=== PATIENT | female | born 1970 | race Caucasian/White ===

== ENCOUNTER 2018-04-05 22:01 | Emergency (ER) | payer BC ==
[~2018-04-05] VITALS: Ht 172.7 cm; Wt 113.4 kg
--- NOTE | 2018-04-05 22:01 | NUR ---
PT BIB [facility] 83. PER PT, SHE WAS AT A HOT TUB W/ FRIENDS AND DRINKING BEER, WHEN SHE SLIPPED DOWN 2 STEPS. PT NOW PRESENTS TO ER W/ 07/22 RT ANKLE PAIN W/ OBVIOUS DEFORMITY, AND PLACED IN TEMPORARY SPLINT BY PARAMEDICS.
--- NOTE | 2018-04-05 22:02 | NUR ---
PER PARAMEDICS, PT WAS GIVEN 8MG MORPHINE IV AND 4MG ZOFRAN IV EN ROUTE TO ER. PT STILL C/O 07/22 PAIN.
[2018-04-05] MEDS ORDERED: FENTANYL CITRATE 100 MCG/2 ML AMPUL ONE (22:09)
[2018-04-05] MEDS ORDERED: MIDAZOLAM HCL 2 MG/2 ML VIAL ONE (22:10)
--- NOTE | 2018-04-05 22:11 | NUR ---
DR DESIRE ANN MD, FORM MAKER, RESPIRATORY THERAPY, 2 RN'S, INKER AT BEDSIDE FOR CONSCOIUS SEDATION PREP.
[2018-04-05] MEDS ORDERED: MIDAZOLAM HCL 2 MG/2 ML VIAL IV ONE (22:15)
[2018-04-05] MEDS ORDERED: FENTANYL CITRATE 100 MCG/2 ML AMPUL IV ONE (22:15)
--- NOTE | 2018-04-05 22:20 | NUR ---
CONSCIOUS SEDATION PERFORMED AT BEDSIDE: 2206: PRE-PROCEDURE VITALS BP 147/85, HR 92, 98% O2 RA 2212: 100 MCG FENTANYL IV AND 4 MG VERSED IV GIVEN BP 138/75, HR 83, 99% O2 ON 2L NC 2217: INTRA-PROCEDURE BP 117/79, HR 87, 98% O2 ON 2L NC 2021: POST-PROCEDURE BP 131/80, HR 76, 100% O2 ON 2L NC
--- NOTE | 2018-04-05 22:26 | NUR ---
RADIOLOGY AT PT BEDSIDE FOR XRAY OF RT LEG.
[2018-04-05] MEDS ORDERED: ONDANSETRON 4 MG/2 ML VIAL IV ONE (22:30)
[2018-04-05] MEDS ORDERED: IV NORMAL SALINE 1000 ML BAG IV ONE (22:30)
[2018-04-05] MEDS ORDERED: HYDROMORPHONE 1 MG/1 ML DISP.SYRIN IV ONE (22:30)
--- NOTE | 2018-04-05 22:42 | NUR ---
RADIOLOGY AT BEDSIDE FOR CHEST XRAY.
[2018-04-05 23:08] LABS: BILIRUBIN,DIRECT 0.1 mg/dL (0.0-0.2); BILIRUBIN,TOTAL 0.3 mg/dL (0.2-1.0); CREATININE 0.8 mg/dL (0.6-1.3); POTASSIUM 3.4 mmol/L (3.5-5.1); TOTAL PROTEIN, SERUM 7.2 g/dL (6.4-8.2)
--- NOTE | 2018-04-05 23:15 | NUR ---
PER [employer], PT IS NOT TO BE ADMITTED. RATHER, WILL BE INSTRUCTED TO FOLLOW UP THE FOLLOWING DAY FOR SPECIALTY CONSULT.
[2018-04-05] MEDS ORDERED: ONDANSETRON 4 MG/2 ML VIAL ONE (23:22)
[2018-04-05] MEDS ORDERED: HYDROMORPHONE 2 MG/1 ML DISP.SYRIN ONE (23:22)
[2018-04-06 00:12] LABS: BASOPHILS % (AUTO) 0.5 % (0.0-2.0); EOSINOPHILS # (AUTO) 0.5 K/uL (0.0-0.7); EOSINOPHILS % (AUTO) 5.3 % (0.0-7.0); HEMATOCRIT 33.9 % (31.2-41.9); HEMOGLOBIN 11.6 g/dL (10.9-14.3); LYMPHOCYTES # (AUTO) 2.3 K/uL (20.0-40.0); LYMPHOCYTES % (AUTO) 26.5 % (20.5-51.5); MEAN CORPUSCULAR HEMOGLOBIN 31.1 uug (24.7-32.8); MEAN CORPUSCULAR HGB CONC 34 g/dL (32.3-35.6); MEAN CORPUSCULAR VOLUME 91.2 fL (75.5-95.3); MONOCYTES # (AUTO) 0.8 K/uL (2.0-10.0); MONOCYTES % (AUTO) 9.5 % (0.0-11.0); NEUTROPHILS % (AUTO) 58.2 % (38.5-71.5); PLATELET COUNT (AUTO) 244 K/uL (179-408); RED BLOOD CELL COUNT(AUTO) 3.72 MIL/uL (3.63-4.92); WHITE BLOOD COUNT (AUTO) 8.6 K/uL (3.8-11.8)
--- NOTE | 2018-04-06 00:24 | NUR ---
Crutches dispensed. Pt instructed on proper use of crutches. Patient able to demonstrate correct use of crutches.
--- NOTE | 2018-04-06 00:25 | NUR ---
Patient discharged to home in stable conditon. Written and verbal after care instructions given. Patient verbalizes understanding of instructions. Pt ambulated from ER w/ use of crutches w/ steady gait. No distress noted. Pt accompanied by friends. Pt took all personal belongings.
[2018-04-06 02:45] VITALS: BP 135/68
[2018-04-06] MEDS ORDERED: METF500T6 PO (11:50)
[2018-04-06] MEDS ORDERED: SERT50TA PO (11:50)
[2018-04-06] MEDS ORDERED: ZOLP5TAB2 PO (18:24)
== END 2018-04-06 03:24 | disposition home or self-care (01) ==
LOC: ER 22:03
DX: S82.841A Displaced bimalleolar fracture of right lower leg, initial encounter for closed fracture (principal); W18.40XA Slipping, tripping and stumbling without falling, unspecified, initial encounter; Y93.89 Activity, other specified; Y92.89 Other specified places as the place of occurrence of the external cause; Y99.8 Other external cause status
CPT/HCPCS: 36415; 71045; 73590; 73610; 84703; 85025; 93005; A4663; J1170; J2250; J2405; J3010; J7030

== ENCOUNTER 2018-04-06 10:48 | Inpatient (IN) | payer BC ==
[~2018-04-06] VITALS: Ht 172.7 cm; Wt 117.9 kg
[~2018-04-06 10:48] MED LIST: CEFAZOLIN 1 G VIAL MC ONE; DEXAMETHASONE SOD PHOSPHATE 4 MG INJ IV ONE; GLYCOPYRROLATE 0.2 MG/ML VIAL MC ONE; IV NORMAL SALINE 1000 ML BAG IV ONE; KETOROLAC TROMETHAMINE 30 MG INJ IM ONE; LIDOCAINE HCL 2% 20 ML VIAL MC ONE; NEOSTIGMINE METHYLSULFATE 10 MG/10 ML VIAL IV ONE; ONDANSETRON 4 MG/2 ML VIAL IV ONE; PROPOFOL 200 MG/20 ML BOTTLE IV ONE
[2018-04-06] MEDS ORDERED: HYDROMORPHONE 1 MG/1 ML DISP.SYRIN IM ONE ×2 (11:00→12:30)
[2018-04-06] MEDS ORDERED: diphenhydrAMINE 50 MG/1 ML VIAL IM ONE (11:00)
[2018-04-06] MEDS ORDERED: diphenhydrAMINE 50 MG/1 ML VIAL ONE (11:09)
[2018-04-06] MEDS ORDERED: HYDROMORPHONE 2 MG/1 ML DISP.SYRIN ONE ×3 (11:10→15:21)
--- NOTE | 2018-04-06 11:15 | NUR ---
Patient here for c/o ankle "dislocation". States was addi last night for same reason. Medications given as ordered. Patient at CT scan now...
--- NOTE | 2018-04-06 11:45 | NUR ---
Patient states pain has diminshed slightly. She is awake and alert.
[2018-04-06] MEDS ORDERED: METF500T6 PO (11:50)
[2018-04-06] MEDS ORDERED: SERT50TA PO (11:50)
--- NOTE | 2018-04-06 12:45 | NUR ---
Pain medication given as ordered.
--- NOTE | 2018-04-06 13:20 | NUR ---
Patient states pain ahs dimiished slightly. Ice bag placed on ankle. Patient states ice makes it feel better.
[2018-04-06] MEDS ORDERED: FENTANYL CITRATE 100 MCG/2 ML AMPUL IV ONE (14:00)
--- NOTE | 2018-04-06 14:13 | NUR ---
dr adrienne power here at bedside speaking to patient
[2018-04-06 14:27] LABS: BASOPHILS % (AUTO) 0.5 % (0.0-2.0); EOSINOPHILS # (AUTO) 0.4 K/uL (0.0-0.7); EOSINOPHILS % (AUTO) 4.8 % (0.0-7.0); HEMATOCRIT 37.3 % (31.2-41.9); HEMOGLOBIN 12.5 g/dL (10.9-14.3); LYMPHOCYTES # (AUTO) 1.8 K/uL (20.0-40.0); LYMPHOCYTES % (AUTO) 20.5 % (20.5-51.5); MEAN CORPUSCULAR HEMOGLOBIN 30.3 uug (24.7-32.8); MEAN CORPUSCULAR HGB CONC 33 g/dL (32.3-35.6); MEAN CORPUSCULAR VOLUME 90.8 fL (75.5-95.3); MONOCYTES % (AUTO) 11.1 % (0.0-11.0); NEUTROPHILS # (AUTO) 5.5 K/uL (1.8-8.9); NEUTROPHILS % (AUTO) 63.1 % (38.5-71.5); PLATELET COUNT (AUTO) 260 K/uL (179-408); RED BLOOD CELL COUNT(AUTO) 4.11 MIL/uL (3.63-4.92); WHITE BLOOD COUNT (AUTO) 8.8 K/uL (3.8-11.8)
[2018-04-06] MEDS ORDERED: FENTANYL CITRATE 100 MCG/2 ML AMPUL ONE ×2 (14:29→16:58)
[2018-04-06 14:34] LABS: BILIRUBIN,DIRECT 0.1 mg/dL (0.0-0.2); BILIRUBIN,TOTAL 0.5 mg/dL (0.2-1.0); CREATININE 0.8 mg/dL (0.6-1.3); POTASSIUM 4.2 mmol/L (3.5-5.1); TOTAL PROTEIN, SERUM 7.6 g/dL (6.4-8.2)
[2018-04-06] MEDS ORDERED: POLYMYXIN B SULFATE 500,000 UNITS, BACITRACIN 50,000 UNITS, NORMAL SALINE 20 ML MC ONE ×3 (14:45)
--- NOTE | 2018-04-06 14:45 | NUR ---
Fentanyl given slowly iv as ordered for c/o continuous pain in ankle.
[2018-04-06] MEDS ORDERED: ROCURONIUM BROMIDE 50 MG/5 ML VIAL ONE (15:21)
[2018-04-06] MEDS ORDERED: SUCCINYLCHOLINE CHLORIDE 200 MG/10 ML VIAL ONE (15:21)
--- NOTE | 2018-04-06 15:21 | NUR ---
patient states pain has diminshed slightly. OR team monie and Arlene here. Report given to them both. patient is aware of pending surgery. She spoke to Dr Israel and signed a surgical consent. She has been NPO since 0800 today... states she had a piece of "toast"
[2018-04-06] MEDS ORDERED: DESFLURANE ANESTHESIA GAS 240 ML BOTTLE ONE (15:53)
[2018-04-06] MEDS ORDERED: SEVOFLURANE 250 ML BOTTLE ONE (15:53)
[2018-04-06] MEDS ORDERED: HYDROCODONE/APAP 10-325 MG TABLET PO PRN (17:15)
[2018-04-06] MEDS ORDERED: IV D5W-0.45% NS +20 KCL 1,000 ML IV PRN (17:15)
[2018-04-06] MEDS ORDERED: MORPHINE SULFATE 4 MG/1 ML DISP.SYRIN IV PRN (17:15)
[2018-04-06 18:11] VITALS: BP 121/65
[2018-04-06] MEDS ORDERED: ZOLP5TAB2 PO (18:24)
[2018-04-06 18:25] VITALS: BP 135/70
[2018-04-06 18:40] VITALS: BP 135/88
[2018-04-06 18:55] VITALS: BP 134/74
--- NOTE | 2018-04-06 18:58 | NUR ---
Pt alert and orientx 4. IV on right f/A intact. Pt on cast on right leg. Right Leg +2 edema. right leg Elevated on pillow and iced. Gave pt Morphine for pain on right ankle. Pt able to wiggle toes and feel sensation on right foot. Educated pt on proper pain management and prevention of constipation by dringink prune juice or increase fiber intake. Pt verbalized understanding. o2 97% on 3 liters. Call light is within reach.
[2018-04-06 19:00] VITALS: BP 130/73
--- NOTE | 2018-04-06 19:10 | NUR ---
RECEIVED PT AWAKE, ALERT, AND ORIENTEDX4. PT SHOWS NO SIGNS OF DISTRESS. PT IV INTACT AND PATENT. PUT ICE AND ELEVATE THE LEGS OF THE PT. CALL LIGHT WITHIN REACH, BED ALARM ON, IN LOW POSITION ,AND SIDE RAILS X2UP. WILL CONTINUE TO MONITOR.
[2018-04-06 19:30] VITALS: BP 144/80
[2018-04-06] MEDS ORDERED: MAGNESIUM HYDROXIDE 30 ML LIQUID UDC PO PRN (19:30)
[2018-04-06] MEDS ORDERED: ONDANSETRON 4 MG/2 ML VIAL IV PRN (19:30)
[2018-04-06] MEDS ORDERED: MORPHINE SULFATE 2 MG/1 ML DISP.SYRIN IV PRN (19:30)
[2018-04-06] MEDS ORDERED: DEXTROSE 50% 50 ML DISP.SYRIN IV PRN (19:30)
[2018-04-06] MEDS ORDERED: ACETAMINOPHEN 325 MG TABLET PO PRN (19:30)
[2018-04-06] MEDS ORDERED: DOCUSATE SODIUM 250 MG CAPSULE PO SCH (21:00)
[2018-04-06] MEDS: BLOOD SUGAR DIAGNOSTIC 1 EACH STRIP VI SCH (21:16)
[2018-04-06] MEDS: INSULIN REGULAR, HUMAN 300 UNIT/3 ML VIAL SQ PRN (21:37)
[2018-04-06] MEDS: MORPHINE SULFATE 4 MG/1 ML DISP.SYRIN IV PRN (22:22)
[2018-04-06] MEDS: CEFAZOLIN 50 ML IV SCH (23:35)
[2018-04-06] MEDS: ZOLPIDEM 5 MG TABLET PO PRN (23:36)
[2018-04-07] VITALS: BP 120/71
[2018-04-07 04:00] VITALS: BP 121/62
[2018-04-07] MEDS: MORPHINE SULFATE 4 MG/1 ML DISP.SYRIN IV PRN ×5 (04:36→20:04)
[2018-04-07] MEDS: PANTOPRAZOLE SODIUM 40 MG TABLET.DR PO SCH (06:22)
[2018-04-07] MEDS: BLOOD SUGAR DIAGNOSTIC 1 EACH STRIP VI SCH ×4 (06:41→20:14)
--- NOTE | 2018-04-07 06:50 | NUR ---
PT SLEPT THROUGHOUT THE SHIFT. PT SHOWS NO SIGNS OF DISTRESS. IV INTACT AND PATENT. HER TELEMETRY WAS DISCONTINUE AT 2307 AND THE LAST READING WAS SINUS RYTHM AT 63 HEART RATE.INCENTIVE SPIROMETRY GIVEN AND TEACH THE TO PT TO USE IT. PAIN MANAGEMENT DONE. ELEVATE THE LEGS AND PUT ICE. PT CAN WIGGLE HER TOES AND FEELS SENSATION. NEUROVASCULAR CHECK DONE. SAFETY AND COMFORT PROVIDED. WILL ENDORSE TO DAYSHIFT NURSE.
[2018-04-07 07:30] LABS: BASOPHILS % (AUTO) 0.3 % (0.0-2.0); EOSINOPHILS % (AUTO) 0.3 % (0.0-7.0); HEMATOCRIT 35.2 % (31.2-41.9); LYMPHOCYTES # (AUTO) 1.2 K/uL (20.0-40.0); LYMPHOCYTES % (AUTO) 12.4 % (20.5-51.5); MEAN CORPUSCULAR HEMOGLOBIN 30.8 uug (24.7-32.8); MEAN CORPUSCULAR HGB CONC 34 g/dL (32.3-35.6); MEAN CORPUSCULAR VOLUME 90.4 fL (75.5-95.3); MONOCYTES # (AUTO) 1.1 K/uL (2.0-10.0); NEUTROPHILS # (AUTO) 7.6 K/uL (1.8-8.9); PLATELET COUNT (AUTO) 223 K/uL (179-408); RED BLOOD CELL COUNT(AUTO) 3.89 MIL/uL (3.63-4.92)
[2018-04-07 07:31] LABS: CREATININE 0.7 mg/dL (0.6-1.3); POTASSIUM 4.5 mmol/L (3.5-5.1)
[2018-04-07 07:32] LABS: BILIRUBIN,TOTAL 0.4 mg/dL (0.2-1.0); MAGNESIUM 2.1 mg/dL (1.8-2.4); PHOSPHOROUS 3.4 mg/dL (2.5-4.9)
[2018-04-07] MEDS: HYDROCODONE/APAP 5-325MG TABLET PO PRN ×2 (07:48→14:07)
[2018-04-07] MEDS: INSULIN REGULAR, HUMAN 300 UNIT/3 ML VIAL SQ PRN ×3 (07:50→20:20)
[2018-04-07] MEDS: SERTRALINE HCL 50 MG TABLET PO SCH (08:16)
[2018-04-07] MEDS: CEFAZOLIN 50 ML IV SCH (08:17)
--- NOTE | 2018-04-07 09:35 | NUR ---
PT SEEN ON ROUNDING. pt complained of pain. pt given norco and morphine to alleviate pain. applied dvt pumps and raised leg. pt given antibiotics as ordered. encouraged pt to use incentive spirometry. pt felt throbbing pain. will ask md for muscle relaxants. will continue to monitor.
[2018-04-07 11:00] VITALS: BP 99/61
[2018-04-07 15:34] VITALS: BP 103/83
[2018-04-07] MEDS: RIVAROXABAN 10 MG TABLET PO SCH (17:45)
[2018-04-07] MEDS ORDERED: RIVAROXABAN 15 MG TABLET PO SCH (18:00)
--- NOTE | 2018-04-07 19:10 | NUR ---
RECEIVED PT AWAKE, ALERT, ORIENTEDX4. PT SHOWS NO SIGNS OF DISTRESS. PT IV INTACT AND PATENT. LEGS ELEVATED. RIGHT ANKLE HAVE PULSE AND FELT SENSATION. CALL LIGHT WITHIN REACH, BED ALARM ON AND IN LOW POSITION AND SIDE RAILS UPX2. WILL CONTINUE TO MONITOR.
[2018-04-07 20:00] VITALS: BP 116/62
[2018-04-07] MEDS: DOCUSATE SODIUM 100 MG CAPSULE PO SCH (20:05)
[2018-04-08] MEDS: HYDROCODONE/APAP 10-325 MG TABLET PO PRN (00:29)
[2018-04-08] MEDS: ZOLPIDEM 5 MG TABLET PO PRN (00:29)
[2018-04-08 03:59] VITALS: BP 103/65
[2018-04-08] MEDS: PANTOPRAZOLE SODIUM 40 MG TABLET.DR PO SCH (06:23)
[2018-04-08] MEDS: MORPHINE SULFATE 4 MG/1 ML DISP.SYRIN IV PRN ×4 (06:29→19:08)
[2018-04-08] MEDS: BLOOD SUGAR DIAGNOSTIC 1 EACH STRIP VI SCH ×4 (06:30→20:44)
--- NOTE | 2018-04-08 06:34 | NUR ---
PT SLEPT THROUGHOUT THE SHIFT. PRESCRIBED MEDICATION GIVEN AND PT TOLERATED IT WELL. IV INTACT. VITAL SIGNS WNL. PT CAN WIGGLE HER TOES AND HAVE PEDAL PULSE. LEGS ELEVATED .ENCOURAGED PT TO USE HER INCENTIVE SPIROMETRY. CALL LIGHT WITHIN REACH. SAFETY AND COMFORT PROVIDED. WILL ENDORSE TO DAYSHIFT NURSE.
[2018-04-08] MEDS: SERTRALINE HCL 50 MG TABLET PO SCH (08:32)
[2018-04-08 11:44] VITALS: BP 123/65
[2018-04-08 15:26] VITALS: BP 112/61
[2018-04-08] MEDS: INSULIN REGULAR, HUMAN 300 UNIT/3 ML VIAL SQ PRN ×2 (16:46→20:48)
[2018-04-08] MEDS: RIVAROXABAN 10 MG TABLET PO SCH (18:14)
--- NOTE | 2018-04-08 18:24 | NUR ---
PT RESTING IN BED WITH NO SIGNS OF RESPIRATORY DISTRESS. CALM ,COOPERATIVE, RIGHT LEG ELEVATED AND ICE APPLIED. CONTINUE TO MONITOR PT.
[2018-04-08 20:00] VITALS: BP 123/77
--- NOTE | 2018-04-08 20:00 | NUR ---
PATIENT IS AWAKE IN BED, AAOX3 PAIN MEDS WERE GIVEN PRIOR TO START OF THE SHIFT. NO ACUTE DISTRESS OR PAIN AT PRESENT. SAFETY MEASURES IN PLACE, CALL LIGHT LEFT WITHIN PATIENT'S REACH
[2018-04-08] MEDS: DOCUSATE SODIUM 100 MG CAPSULE PO SCH (20:40)
[2018-04-09] MEDS: MORPHINE SULFATE 4 MG/1 ML DISP.SYRIN IV PRN (01:13)
[2018-04-09 03:20] VITALS: BP 120/74
[2018-04-09] MEDS: PANTOPRAZOLE SODIUM 40 MG TABLET.DR PO SCH (06:22)
[2018-04-09] MEDS: HYDROCODONE/APAP 10-325 MG TABLET PO PRN ×2 (06:24→10:36)
[2018-04-09] MEDS: BLOOD SUGAR DIAGNOSTIC 1 EACH STRIP VI SCH ×3 (06:28→16:26)
--- NOTE | 2018-04-09 06:37 | NUR ---
PATIENT SLEPT WELL THROUGH THE NIGHT, PAIN MEDS GIVEN REQUESTED BY PATIENT. NO ACUTE DISTRESS OR ANY SIGNS OF PAIN AT PRESENT. NO FEVER, VSS STABLE. SAFETY MAINTAINED AT ALL TIMES
--- NOTE | 2018-04-09 07:30 | NUR ---
RECEIVED REPORT FROM SURVEY QUESTIONNAIRE DESIGNER NURSE, PATIENT ON BED AWAKE, A AND O X 4, NO ACUTE DISTRESS NOTED. NORCO ADMINISTERED BY SURVEY QUESTIONNAIRE DESIGNER RN, [id number], REASSESSED PATIENT'S PAIN LEVEL, NOW AT 4/10. LAST BLOOD SUGAR WAS 117, NO INSULIN COVERAGE NEEDED. IV ACCESS ON THE RIGHT AC #20 HEPLOCK, INTACT AND PATENT. COMFORT MEASURES PROVIDED. CALL LIGHT WITHIN REACH. WILL CONTINUE TO MONITOR CLOSELY.
[2018-04-09] MEDS: SERTRALINE HCL 50 MG TABLET PO SCH (08:12)
[2018-04-09] MEDS ORDERED: DOCU100C36 PO (10:14)
[2018-04-09] MEDS ORDERED: HYDR-548 PO (10:14)
[2018-04-09] MEDS ORDERED: RIVA10TA PO (10:14)
[2018-04-09 11:35] VITALS: BP 119/67
--- NOTE | 2018-04-09 13:50 | NUR ---
patient noted with IV site on right AC #20 out and dislodged, removed IV catheter, well tolerated. offered to reinsert new site but patient refused saying she does not need it anymore because she is going home later today. will continue to monitor.
[2018-04-09 15:11] VITALS: BP 128/77
[2018-04-09] MEDS: INSULIN REGULAR, HUMAN 300 UNIT/3 ML VIAL SQ PRN (16:26)
--- NOTE | 2018-04-09 16:27 | NUR ---
PATIENT BLOOD SUGAR 137, REFUSED INSULIN COVERAGE OF 2 UNITS, SAID SHE WILL JUST TAKE METFORMIN AT HOME. WILL CONTINUE TO MONITOR.
--- NOTE | 2018-04-09 17:00 | NUR ---
DISCHARGED PATIENT IN STABLE CONDITION, DISCHARGE INSTRUCTIONS AND PAPERS GIVEN AND EXPLAINED TO PATIENT. BELONGINGS LIST SIGNED. REFUSED MEDICATION EDUCATION FROM PHARMACIST. PRESCRIPTION SCRIPT AND WALKER DME WITH PATIENT. TOOK PATIENT DOWN IN WHEELCHAIR, PATIENT LEFT IN PRIVATE CAR, ACCOMPANIED BY PAT ().
== END 2018-04-09 17:00 | disposition home or self-care (01) | DRG 493 ==
LOC: ER 10:48 → TELE 15:12 → MED 04-07 03:20
PROVIDERS: ADMIT Internal Medicine; ATTEND Internal Medicine
PROC: 0QSJ04Z Reposition Right Fibula with Internal Fixation Device, Open Approach (ICD-10-PCS; principal; 2018-04-06 15:30)
PROC: 0QSG04Z Reposition Right Tibia with Internal Fixation Device, Open Approach (ICD-10-PCS; principal; 2018-04-06 15:30)
DX: S82.841A Displaced bimalleolar fracture of right lower leg, initial encounter for closed fracture (principal); D68.59 Other primary thrombophilia; W17.89XA Other fall from one level to another, initial encounter; Y93.11 Activity, swimming; Y92.89 Other specified places as the place of occurrence of the external cause; E66.9 Obesity, unspecified; Z68.39 Body mass index [BMI] 39.0-39.9, adult; E11.9 Type 2 diabetes mellitus without complications; Z90.710 Acquired absence of both cervix and uterus; Z90.49 Acquired absence of other specified parts of digestive tract; Z74.09 Other reduced mobility; G47.00 Insomnia, unspecified; F32.9 Major depressive disorder, single episode, unspecified; Z79.84 Long term (current) use of oral hypoglycemic drugs; Z79.899 Other long term (current) drug therapy
CPT/HCPCS: 36415; 70030-TC; 71045; 73600; 73700; 76000; 83735; 84100; 84703; 85025; 85730; 93005; 97110; 97116; 97530; A4663; J0330; J0690; J1100; J1170; J1200; J1815; J1885; J2270; J2405; J2710; J3010; J3490; J7030; J7050